=== PATIENT | female | born 1960 | race Caucasian/White ===

== ENCOUNTER 2017-08-15 15:21 | Outpatient (CLI) | payer OTHER ==
--- NOTE | 2017-08-15 17:55 | MRI ---
EXAM: CERVICAL SPINE MRI WITHOUT CONTRAST 08/15/17 HISTORY: Neck pain, radiating down the right shoulder and arm with associated numbness in the fingers x3 weeks . COMPARISON: None. TECHNIQUE: Cervical spine MRI is performed without intravenous gadolinium administration. Multisequential, multi planar imaging is performed. FINDINGS: Minimal anterior translation of C2 upon C3. No significant STIR hyperintensity to suggest vertebral b susan edema or ligamentous injury. Cervical spine vertebral body height is maintained. There is no frac ture. The visualized brain parenchyma, and cervicomedullary junction have an overall normal size and signal intensity. There is patchy T2 hyperintensity throughout the cervical cord. No associated cord expansion. Areas of T2 hyperintensity are nonspecific. Gliotic change is favored. C2-C3: No significant disc osteophyte complex. No significant central canal stenosis or neural forami nal narrowing. C3-C4: Broad based disc osteophyte complex. The ventral subarachnoid space is effaced. Mild central c anal stenosis. Neural foramina are patent bilaterally. C4-C5: Broad based disc bulge with effacement in the ventral thecal sac. Minimal central canal stenos is. Neural foramina are patent. There is grade I anterolisthesis of C4 upon C5. C5-C6: Broad based disc osteophyte complex with a left paracentral component. The left paracentral sherman barachnoid space is effaced. There is mild central canal stenosis. Degenerative change in the right u ncovertebral joint results in moderate right and mild left foraminal narrowing. C6-C7: There is broad based disc osteophyte complex with a right paracentral superior and inferior di sc extrusion. There is deformity of the right hemicord. There is moderate narrowing of the right aspe ct of the central spinal canal. There is no significant foraminal narrowing. C7-T1: No significant central canal stenosis or foraminal narrowing. The T1-T2 level also demonstrates degenerative disc disease, incompletely evaluated. IMPRESSION: Patchy T2 hyperintensities throughout the cervical cord predominantly along the central aspect of the cord. These T2 hyperintensities are best seen at C2, C3, C4, C5. Findings may be due to gliotic whittaker ge. No evidence of cord expansion. POS: [facility]
== END 2017-08-15 15:22 | disposition home or self-care (01) ==
LOC: SCSMRI 15:21
PROVIDERS: ATTEND Family Medicine
DX: M54.12 Radiculopathy, cervical region (principal)
CPT/HCPCS: 72141

== ENCOUNTER 2018-01-30 15:31 | Outpatient (CLI) | payer OTHER | END 2018-01-30 15:32 | disposition home or self-care (01) | LOC: BICMAMMO 15:31 | PROVIDERS: ATTEND Obstetrics & Gynecology | DX: Z12.31 Encounter for screening mammogram for malignant neoplasm of breast (principal) | CPT/HCPCS: 77063; 77067 ==

== ENCOUNTER 2019-04-06 15:58 | Outpatient (CLI) | payer OTHER ==
--- NOTE | 2019-04-07 07:43 | MRI ---
MRI Lower Ext Jt Rt WO Con History: M [age] primary osteoarthritis right knee Comparison: None. Findings: Medial meniscus: Intact Lateral meniscus: Horizontal cleavage tear throughout the anterior horn body and posterior horn exten ding to the root attachment. There is high-grade degeneration and maceration of the lateral meniscal body with loss of hoop stress. There is also 3 mm lateral gutter extrusion. High-grade intraligamentous degeneration of the anterior cruciate ligament. Posterior cruciate ligame nt is intact. MCL, LCL, biceps tendon are intact. Extensor mechanism: Quadriceps tendon, patella, and patellar tendon are intact with moderate patellar insertional tendinosis upon the tibial tuberosity. Cartilage: Patellofemoral compartment: Cartilage denuding along the lateral patellar facet. Large trochlear oste ophytes. High-grade cartilage delamination of both the medial and lateral trochlea. Medial compartment: Low-grade chondral fraying without full-thickness defect. Lateral compartment: Near complete cartilage loss along the central weightbearing surface lateral fem oral condyle lateral tibial plateau with early subcortical reactive marrow change and remodeling. Muscles: Muscle bulk is normal. Soft tissues: Moderate joint effusion. Synovitis of the popliteus bursa which contains debris. There are ganglion pseudocysts extruding from the posterior midline joint capsule from prior capsular injury. Impression: 1. High-grade horizontal cleavage tear throughout the lateral meniscus with extensive degeneration, l oss of hoop stress, and lateral gutter extrusion. 2. 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 3. 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 4. Moderate joint effusion and synovitis. 5. Moderate popliteus bursa effusion with synovitis and debris.
== END 2019-04-06 15:59 | disposition home or self-care (01) ==
LOC: SCSMRI 15:58
PROVIDERS: ATTEND Orthopaedic Surgery
DX: M17.11 Unilateral primary osteoarthritis, right knee (principal); S83.281A Other tear of lateral meniscus, current injury, right knee, initial encounter; M65.9 Synovitis and tenosynovitis, unspecified; M25.461 Effusion, right knee; M22.41 Chondromalacia patellae, right knee

== ENCOUNTER 2019-12-14 07:52 | Outpatient (CLI) | payer OTHER ==
--- NOTE | 2019-12-14 09:38 | MRI ---
MRI LUMBAR SPINE NONCONTRAST: HISTORY: Low back pain. No known trauma. COMPARISON: None. FINDINGS: Appropriate T1 marrow signal intensity of the lumbar vertebrae. Lumbar spine vertebral body height is maintained. There is no fracture. No significant STIR hyperintensity to suggest vertebral body edema or ligamentous injury. Straightening of lumbar lordosis is felt to be positional. No significant STIR hyperintensity to suggest edema from fracture. No evidence of ligamentous injury. Appropriate signal intensity of the visualized paraspinal muscles and solid organs. Conus medullaris terminates at the mid T12 level. T12-L1:Adequate disc hydration. No significant central canal stenosis or significant neural foraminal narrowing. L1-L2:Disc desiccation with mild loss of disc space height. Minimal right paracentral disc bulge. No significant central canal stenosis. Mild right neural foraminal narrowing due to disc material. Patent left neural foramen. L2-L3:Desiccation with moderate to severe loss of disc space height. Broad-based disc bulge, ligament flavum thickening and facet hypertrophy result in mild central canal stenosis. Mild bilateral neural foraminal narrowing. L3-L4:Disc desiccation with moderate to severe loss of disc space height. Broad-based disc bulge, lig ament flavum thickening and facet hypertrophy result in mild central canal stenosis. Mass effect and partial obscuration of bilateral traversing L4 nerve roots probably due to disc material. There i s a component of facet hypertrophy and ligamentum flavum thickening which contribute to the narrowing of the left subarticular zone. Right neural foramen is patent. Moderate left foraminal narr owing predominantly due to disc material. L4-L5:Disc desiccation with moderate to severe loss of disc space height. Broad-based disc bulge, lig ament flavum thickening and facet hypertrophy result in moderate central canal stenosis. Narrowing of both subarticular zones with partial obscuration of bilateral traversing L5 nerve roots. There is a small component of inferior disc extrusion in the right subarticular zone which also causes mass effect on the right S1 nerve root. Moderate bilateral neural foraminal narrowing. L5-S1:Desiccation with moderate loss of disc space height. There is a broad-based disc bulge which ca uses mass effect upon the thecal sac. Mild stenosis of the thecal sac. Narrowing of bilateral subarticular zones with near complete obscuration of the traversing right S1 nerve root. Partial obsc uration traversing left S1 nerve root. Moderate bilateral neural foraminal. IMPRESSION: Multilevel degenerative changes of the lumbar spine as detailed. Transcribed Date/Time: 12/14/2019 12:52 PM
== END 2019-12-14 07:53 | disposition home or self-care (01) ==
LOC: SCSMRI 07:52
PROVIDERS: ATTEND Family Medicine
DX: M47.26 Other spondylosis with radiculopathy, lumbar region (principal)
CPT/HCPCS: 72148

== ENCOUNTER 2021-01-24 08:29 | Outpatient (CLI) | payer BC | END 2021-01-24 08:30 | disposition home or self-care (01) | LOC: BICMAMMO 08:29 | PROVIDERS: ATTEND Obstetrics & Gynecology | DX: Z12.31 Encounter for screening mammogram for malignant neoplasm of breast (principal); N64.89 Other specified disorders of breast | CPT/HCPCS: 77063; 77067 ==